=== PATIENT | female | born 1955 | race Caucasian/White ===

== ENCOUNTER 2017-05-06 14:10 | Outpatient (CLI) | payer BC ==
[2017-05-06 17:45] LABS: BASOPHILS % (AUTO) 0.3 %; EOSINOPHILS # (AUTO) 0.1 10^3/uL (0.0-0.7); EOSINOPHILS % (AUTO) 0.8 %; HCT - HEMATOCRIT 40.3 % (37.0-47.0); HGB - HEMOGLOBIN 13.9 g/dL (12.0-16.0); LYMPHOCYTES # (AUTO) 1.3 10^3/uL (1.5-3.5); LYMPHOCYTES % (AUTO) 18.8 %; MEAN CORPUSCULAR HEMOGLOBIN 34.2 pg (27.0-31.0); MEAN CORPUSCULAR HGB CONC 34.4 g/dL (32.0-36.0); MEAN CORPUSCULAR VOLUME 99.3 fL (81.0-99.0); MEAN PLATELET VOLUME 6.6 fL (7.9-10.8); MONOCYTES # (AUTO) 0.4 10^3/uL (0.0-1.0); MONOCYTES % (AUTO) 5.5 %; NEUTROPHILS % (AUTO) 74.6 %; RED BLOOD COUNT 4.06 10^6/uL (4.20-5.40); UNCORRECTED WHITE BLOOD COUNT 6.7 x10^3/uL; WHITE BLOOD COUNT 6.7 x10^3/uL (4.8-10.8)
[2017-05-06 17:59] LABS: ALBUMIN/GLOBULIN RATIO 1.7 (1.0-2.2); BILIRUBIN,TOTAL 0.4 mg/dL (0.2-1.0); CALCIUM 8.8 mg/dL (8.5-10.3); CREATININE 1.1 mg/dL (0.4-1.0); TOTAL PROTEIN 6.7 g/dL (6.7-8.2)
== END 2017-05-06 14:11 | disposition home or self-care (01) ==
LOC: LAB.F 14:10
PROVIDERS: ATTEND Physician Assistant Medical
DX: R53.83 Other fatigue (principal); J02.9 Acute pharyngitis, unspecified
CPT/HCPCS: 36415; 80053; 85025; 87070; 87430

== ENCOUNTER 2017-05-06 19:35 | Outpatient (CLI) | payer BC ==
[2017-05-06 18:51] LABS: RAPID STREP SCREEN REAGENT QC YELLOW (YELLOW)
== END 2017-05-06 19:36 | disposition home or self-care (01) ==
LOC: LAB.R 19:35
PROVIDERS: ATTEND Physician Assistant Medical
DX: R53.83 Other fatigue (principal); J02.9 Acute pharyngitis, unspecified
CPT/HCPCS: 87070; 87430

== ENCOUNTER 2017-12-31 12:31 | Outpatient (CLI) | payer BC ==
--- NOTE | 2017-12-31 13:33 | XRAY Report ---
THREE VIEW RIGHT WRIST: 12/31/2017 CLINICAL INDICATION: Pain. FINDINGS: AP, lateral, oblique views of the right wrist demonstrate mild osteoarthritis. There is no evidence of acute fracture or dislocation. No radiopaque foreign body is seen in the soft tissues. IMPRESSION: MILD OSTEOARTHRITIS. TD: 12/31/2017 13:32
== END 2017-12-31 12:32 | disposition home or self-care (01) ==
LOC: DI.S 12:31
PROVIDERS: ATTEND Nurse Practitioner Family
DX: M25.531 Pain in right wrist (principal); M19.031 Primary osteoarthritis, right wrist

== ENCOUNTER 2020-11-23 08:00 | Outpatient (CLI) | payer MEDICARE ==
--- OUTSIDE RECORDS SUMMARY | 2020-11-29 01:48 | EXTERNAL MEDICAL SUMMARY RPT | Continuity of Care Document ---
:1955 Demographics Phone Unavailable Preferred Language Unknown Marital Status Unknown Mandaeism Affiliation Unknown Race Unknown Ethnic Group Unknown Author Organization [facility] Address [address] [phone] Phone Care Team Providers Name Role Phone MA Unavailable Unavailable PA-C Unavailable Unavailable Itz Unavailable Unavailable Problems date description facility [id number] Alcohol use [facility] [id number] Abdominal pain, other specified site; [facility] [id number] Alcohol intake [facility] [place] [facility] [id number] Details of drug misuse behavior [facility] [id number] Left flank pain [facility] [place] [facility] [id number] Never smoker [facility] [id number] Tobacco smoking status [facility] [id number] Unspecified abdominal pain [facility] [id number] Abdominal pain, left lower quadrant [facility] [id number] Dysuria [facility] [place] [facility] [id number] Left lower quadrant pain [facility] [id number] Tobacco use and exposure [facility] [id number] Urine C&S [facility] Results test status date ordered by attending specimen zoe e DIPSTICK_URINE_STRIP_L unknown [id number] unknown unknown unknown OT_NUMBER protein_urine_semiquan unknown [id number] unknown unknown unknown titative_dipstick_ glucose_urine_semiquan unknown [id number] unknown unknown unknown titative Erythrocytes_area_in_U unknown [id number] unknown unknown unknown rine_sediment_by_Micros copy_high_power_field RBC_urine_dipstick unknown [id number] unknown unknown unkn own Albumin_Presence_in_Ur unknown [id number] unknown unknown unknown ine urine_color unknown [id number] unknown unknown unknown bilirubin_urine unknown [id number] unknown unknown unknown ketones_urine_by_test_ unknown [id number] unknown unknown unknown strip nitrite_urine_semiquan unknown [id number] unknown unknown unknown titative pH_urine_semiquantitat unknown [id number] unknown unknown unknown stone specific_gravity_urine unknown [id number] unknown unknown unknown urobilinogen_urine_sem unknown 28479031 unknown unknown unknown iquantitative_dipstick_ leukocyte_esterase_uri unknown [id number] unknown unknown unknown ne_by_dipstick appearance_urine unknown 07234553 unknown unknown unknow n blood_glucose_finger_s unknown 58840753 unknown unknown unknown tick urinalysis_routine unknown [id number] unknown unknown unkn own culture_status unknown [id number] unknown unknown unknown Appearance_of_Urine unknown 86530607 unknown unknown unk nown Bilirubin.total_Presen unknown [id number] unknown unknown unknown ce_in_Urine_by_Test_str ip Color_of_Urine unknown [id number] unknown unknown unknown Glucose_Mass_volume_in unknown 94875638 unknown unknown unknown _Urine_by_Test_strip Ketones_Mass_volume_in unknown [id number] unknown unknown unknown _Urine_by_Test_strip Leukocyte_esterase_Pre unknown 08799510 unknown unknown unknown sence_in_Urine_by_Test_ strip Nitrite_Presence_in_Ur unknown [id number] unknown unknown unknown ine_by_Test_strip pH_of_Urine_by_Test_st unknown 01655181 unknown unknown unknown rip Specific_gravity_of_Ur unknown 99064703 unknown unknown unknown ine_by_Test_strip Urobilinogen_Presence_ unknown [id number] unknown unknown unknown in_Urine_by_Test_strip blood_glucose_finger_s unknown 56687882 unknown unknown unknown tick DIPSTICK_URINE_STRIP_L unknown [id number] unknown unknown unknown OT_NUMBER protein_urine_semiquan unknown 28263477 unknown unknown unknown titative_dipstick_ glucose_urine_semiquan unknown 46904150 unknown unknown unknown titative Erythrocytes_area_in_U unknown 68968415 unknown unknown unknown rine_sediment_by_Micros copy_high_power_field RBC_urine_dipstick unknown 96414480 unknown unknown unkn own Albumin_Presence_in_Ur unknown 15229544 unknown unknown unknown ine urine_color unknown 73138176 unknown unknown unknown bilirubin_urine unknown 57595710 unknown unknown unknown ketones_urine_by_test_ unknown 19987995 unknown unknown unknown strip nitrite_urine_semiquan unknown 46284051 unknown unknown unknown titative pH_urine_semiquantitat unknown 60988406 unknown unknown unknown stone specific_gravity_urine unknown 81504758 unknown unknown unknown urobilinogen_urine_sem unknown [id number] unknown unknown unknown iquantitative_dipstick_ leukocyte_esterase_uri unknown 28318794 unknown unknown unknown ne_by_dipstick appearance_urine unknown 52894215 unknown unknown unknow n blood_glucose_finger_s unknown 59323318 unknown unknown unknown tick urinalysis_routine unknown 41698286 unknown unknown unkn own culture_status unknown 92726816 unknown unknown unknown Appearance_of_Urine unknown 13348302 unknown unknown unk nown Bilirubin.total_Presen unknown 73507300 unknown unknown unknown ce_in_Urine_by_Test_str ip Color_of_Urine unknown 46184267 unknown unknown unknown Glucose_Mass_volume_in unknown 95163570 unknown unknown unknown _Urine_by_Test_strip Ketones_Mass_volume_in unknown 50973380 unknown unknown unknown _Urine_by_Test_strip Leukocyte_esterase_Pre unknown 01396232 unknown unknown unknown sence_in_Urine_by_Test_ strip Nitrite_Presence_in_Ur unknown 79350001 unknown unknown unknown ine_by_Test_strip pH_of_Urine_by_Test_st unknown 74073473 unknown unknown unknown rip Specific_gravity_of_Ur unknown 28448371 unknown unknown unknown ine_by_Test_strip Urobilinogen_Presence_ unknown 08383402 unknown unknown unknown in_Urine_by_Test_strip blood_glucose_finger_s unknown 66424542 unknown unknown unknown tick DIPSTICK_URINE_STRIP_L unknown [id number] unknown unknown unknown OT_NUMBER protein_urine_semiquan unknown 70621949 unknown unknown unknown titative_dipstick_ glucose_urine_semiquan unknown 80953670 unknown unknown unknown titative Erythrocytes_area_in_U unknown 87490422 unknown unknown unknown rine_sediment_by_Micros copy_high_power_field RBC_urine_dipstick unknown 56714407 unknown unknown unkn own Albumin_Presence_in_Ur unknown 50978484 unknown unknown unknown ine urine_color unknown 12007406 unknown unknown unknown bilirubin_urine unknown 13946617 unknown unknown unknown ketones_urine_by_test_ unknown 29197589 unknown unknown unknown strip nitrite_urine_semiquan unknown 94713289 unknown unknown unknown titative pH_urine_semiquantitat unknown 98112865 unknown unknown unknown stone specific_gravity_urine unknown 90736312 unknown unknown unknown urobilinogen_urine_sem unknown 34922643 unknown unknown unknown iquantitative_dipstick_ leukocyte_esterase_uri unknown 81040813 unknown unknown unknown ne_by_dipstick appearance_urine unknown 67526179 unknown unknown unknow n blood_glucose_finger_s unknown 42544021 unknown unknown unknown tick urinalysis_routine unknown 92206959 unknown unknown unkn own culture_status unknown 70512617 unknown unknown unknown Appearance_of_Urine unknown 93101148 unknown unknown unk nown Bilirubin.total_Presen unknown 98948896 unknown unknown unknown ce_in_Urine_by_Test_str ip Color_of_Urine unknown 49713775 unknown unknown unknown Glucose_Mass_volume_in unknown 77355152 unknown unknown unknown _Urine_by_Test_strip Ketones_Mass_volume_in unknown 32525428 unknown unknown unknown _Urine_by_Test_strip Leukocyte_esterase_Pre unknown 28488501 unknown unknown unknown sence_in_Urine_by_Test_ strip Nitrite_Presence_in_Ur unknown 33633770 unknown unknown unknown ine_by_Test_strip pH_of_Urine_by_Test_st unknown 63608416 unknown unknown unknown rip Specific_gravity_of_Ur unknown 82347693 unknown unknown unknown ine_by_Test_strip Urobilinogen_Presence_ unknown 52409759 unknown unknown unknown in_Urine_by_Test_strip blood_glucose_finger_s unknown 70071053 unknown unknown unknown tick facility observation status [...] e_by_test_str Primary ip [facility] nitrite_urin unknown negative unknown _323 unkn [...] 142.2 lb Social History date description facility [id number]
== END 2020-11-23 23:59 | disposition home or self-care (01) ==
LOC: LAB.R 08:00
PROVIDERS: ATTEND Physician Assistant
DX: R10.9 Unspecified abdominal pain (principal); R30.0 Dysuria
CPT/HCPCS: 87086

== ENCOUNTER 2020-11-23 13:53 | Emergency (ER) | payer BC, MEDICARE ==
[2020-11-23] MEDS ORDERED: KETOROLAC 30 MG/ML VIAL IVP STA (14:14)
[2020-11-23] MEDS ORDERED: MORPHINE 2 MG/ML CARPUJECT IVP STA (14:15)
[2020-11-23] MEDS ORDERED: ONDANSETRON 4 MG/2 ML VIAL IVP STA (14:15)
[2020-11-23] MEDS ORDERED: SODIUM CHLORIDE 0.9% 1,000 ML IV STA (14:15)
[2020-11-23 14:18] LABS: BILIRUBIN,URINE NEGATIVE (NEGATIVE); GLUCOSE, URINE (UA) NEGATIVE (NEGATIVE); KETONES,URINE (UA) TRACE mg/dL (NEGATIVE); LEUKOCYTE ESTERASE, URINE NEGATIVE (NEGATIVE); NITRITE,URINE NEGATIVE (NEGATIVE); OCCULT BLOOD,URINE TRACE-INTA (NEGATIVE); PROTEIN,URINE NEGATIVE (NEGATIVE); UROBILINOGEN,URINE 0.2 (NORMAL) E.U./dL (NORMAL)
--- NOTE | 2020-11-23 14:18 | ED Physician Documentation ---
History of Present Illness - Stated complaint Stated Complaint: LT FLANK PX - Chief complaint Chief Complaint: Abd Pain - History obtained from History obtained from: Patient - History of Present Illness Timing: Today Pain level max: 9 Pain level now: 9 - Additonal information Additional information: 65-year-old female presents to the emergency department stating she has urinary discomfort for the past several weeks, intermittently. This morning awoke with sharp left flank pain. Occasionally has chills. Has nausea but no vomiting nothing makes it better or worse. Was seen at the walk-in clinic this morning and sent here for evaluation. Still has dysuria, no hematuria Review of Systems Ten Systems: 10 systems reviewed and negative Constitutional: reports: Chills. denies: Fever Ears: denies: Ear pain Nose: denies: Rhinorrhea / runny nose, Congestion Respiratory: denies: Cough GI: reports: Nausea, Diarrhea (crhonic, unchanged). denies: Vomiting : reports: Dysuria, Frequency, Hesitancy Skin: denies: Rash Musculoskeletal: reports: Back pain (L flank). denies: Neck pain Neurologic: denies: Headache PD PAST MEDICAL HISTORY - Past Medical History Respiratory: Asthma RETAIL BUSINESS DEVELOPMENT MANAGER: Endometriosis, Ovarian cysts - Past Surgical History Past Surgical History: Yes General: Other /RE[employer]ELOPMENT MANAGER: Other (surgery related to endometriosis) - Present Medications Home Medications: Ambulatory Orders Medication Instructions Recorded Confirmed Ibuprofen [Motrin] 800 mg PO Q8H PRN #30 tablet 11/23/20 Ondansetron Odt [Zofran] 4 mg TL Q6H PRN #10 tablet 11/23/20 Oxycodone HCl/Acetaminophen 1 - 2 each PO Q6H PRN #14 tablet 11/23/20 [Percocet 5-325 mg Tablet] - Allergies Allergies/Adverse Reactions: Allergies Allergy/AdvReac Type Severity Reaction Status Date / Time azithromycin AdvReac Nausea Verified 11/23/20 13:58 - Social History Does the pt smoke?: No Smoking Status: Never smoker Does the pt drink ETOH?: Yes Does the pt have substance abuse?: No - Immunizations Immunizations are current?: Yes PD ED PE NORMAL - Vitals Vital signs reviewed: Yes - General General: Alert and oriented X 3, No acute distress - HEENT HEENT: Moist mucous membranes - Neck Neck: Supple, no meningeal sign - Cardiac Cardiac: RRR, Strong equal pulses - Respiratory Respiratory: No respiratory distress, Clear bilaterally - Abdomen Abdomen: Soft, Non tender, Non distended - Back Back: No spinal TTP, Other (L CVAT) - Derm Derm: Warm and dry - Extremities Extremities: No edema, No calf tenderness / cord - Neuro Neuro: Alert and oriented X 3 - Psych Psych: Normal mood, Normal affect Results - Vitals Vitals: Vital Signs - 24 hr 11/23/20 11/23/20 13:58 16:11 Temperature 36.5 C Heart Rate 90 82 Respiratory 16 16 Rate Blood Pressure 115/94 H 111/97 H O2 Saturation 99 Oxygen O2 Source Room air - Labs Labs: Laboratory Tests 11/23/20 11/23/20 11/23/20 14:08 15:13 15:13 WBC 7.8 RBC 4.21 Hgb 14.3 Hct 40.3 MCV 95.7 MCH 34.0 H MCHC 35.5 RDW 13.2 Plt Count 319 MPV 8.1 Neut # (Auto) 6.3 Lymph # (Auto) 0.9 L [place] # (Auto) 0.4 Eos # (Auto) 0.1 Baso # (Auto) 0.0 Absolute Nucleated RBC 0.00 Nucleated RBC % 0.0 Sodium 140 Potassium 3.7 Chloride 100 L Carbon Dioxide 25 Anion Gap 15.0 H BUN 15 Creatinine 0.9 Estimated GFR (MDRD) 63 L Glucose 107 H Calcium 9.1 Total Bilirubin 0.9 AST 20 ALT 17 Alkaline Phosphatase 67 Total Protein 7.5 Albumin 4.2 Globulin 3.3 Albumin/Globulin Ratio 1.3 Lipase 23 Urine Color YELLOW Urine Clarity CLEAR Urine pH 6.0 Ur Specific [place] <=1.005 Urine Protein NEGATIVE Urine Glucose (UA) NEGATIVE Urine Ketones TRACE Urine Occult Blood TRACE-INTA Urine Nitrite NEGATIVE Urine Bilirubin NEGATIVE Urine Urobilinogen 0.2 (NORMAL) Ur Leukocyte Esterase NEGATIVE Ur Microscopic Review NOT INDICATED Urine Culture Comments NOT INDICATED Urine HCG, Qual NEGATIVE - Rads (name of study) CT abd/pelvis Radiology: Prelim report reviewed, EMP read contemporaneously, See rad report (4.5 mm left UVJ stone with mild hydronephrosis) PD MEDICAL DECISION MAKING - ED course Complexity details: reviewed results, re-evaluated patient, considered differential, d/w patient ED course: Pain well controlled in the emergency department. Appears to have a 4.5 mm left UVJ stone. Afebrile. No UTI. No vomiting. Feels much better. We will continue supportive care and have her follow-up with her doctor for further care. Patient counseled regarding signs and symptoms for which I believe and urgent re-evaluation would be necessary. Patient with good understanding of and agreement to plan and is comfortable going home at this time This document was made in part using voice recognition software. While efforts are made to proofread this document, sound alike and grammatical errors may occur. Departure - Departure Disposition: 01 Home, Self Care Clinical Impression: Ureteral calculus, left Condition: Good Instructions: ED Stone Renal W Colic Follow-Up: SOHAN RAINEY MD [Primary Care Provider] - Within 1 week Prescriptions: Ibuprofen [Motrin] 800 mg PO Q8H PRN #30 tablet PRN Reason: PAIN &/OR FEVER Oxycodone HCl/Acetaminophen [Percocet 5-325 mg Tablet] 1 - 2 each PO Q6H PRN #14 tablet PRN Reason: pain Ondansetron Odt [Zofran] 4 mg TL Q6H PRN #10 tablet PRN Reason: Nausea / Vomiting Comments: Drink plenty of fluids. Return if you worsen. You have a 4.5 mm left sided ureteral stone, this should pass on its own. Return especially for fevers, vomiting or uncontrolled pain. The Motrin will help to stop the spasming of the ureter, the Percocet should help with any breakthrough pain. Do not drink alcohol or drive while on narcotic pain medicine. Note that many narcotic pain relievers also contain tylenol/acetaminophen. Please ensure that your total dose of acetaminophen from all sources does not exceed 3 grams (3000mg) per day. You may constipated on this medication, take a stool softener such as "Colace" twice a day while you are on it. Also recommend a [id number] laxative such as senna or MiraLAX any day that you do not have a bowel movement. If you received narcotic pain medication in the emergency department, do not drive or operate machinery for the next 24 hours. 1. Minimal left-sided hydroureteronephrosis with likely 4.5 mm distal left ureteral stone visualized at the left ureterovesicular junction. Multiple adjacent pelvic phleboliths are seen in the vicinity. 2. Otherwise, no acute abnormalities identified in the abdomen or pelvis. 3. Multilevel lower lumbar spondylosis. Discharge Date/Time: 11/23/20 16:10
[2020-11-23 14:19] LABS: CLARITY,URINE CLEAR (CLEAR); HCG UR QUAL NEGATIVE
--- NOTE | 2020-11-23 14:50 | CT Report ---
PROCEDURE: Abdomen/Pelvis WO INDICATIONS: L flank pain, possible renal stone? TECHNIQUE: Noncontrast 5 mm thick sections acquired from the diaphragms to the symphysis. 5 mm coronal and sagi ttal reformats were then performed. For radiation dose reduction, the following was used: automated exposure control, adjustment of mA and/or kV according to patient size. COMPARISON: None. FINDINGS: Image quality: Excellent. ABDOMEN: Lung bases: Lung bases are clear. Heart size is normal. Solid organs: Liver and spleen are normal in size. Gallbladder is unremarkable. Pancreas is normal in contours. No adrenal nodules. Right kidney is normal in size, without hydronephrosis or nephroli thiasis. There is minimal left-sided hydroureteronephrosis with likely 4.5 mm distal left ureteral s tone visualized at the left ureterovesicular junction (axial image 70, series 3). No urinary bladder stones seen. No perinephric or periureteral stranding. Peritoneum and bowel: Unenhanced bowel loops demonstrate normal wall thickness and caliber. No free fluid or air. Nodes and vessels: No retroperitoneal or mesenteric adenopathy by size criteria. Aorta and inferior vena cava are normal in caliber. Minimal scattered atherosclerotic calcifications of the dominant a melania. Miscellaneous: No ventral hernias. PELVIS: Genitourinary: Bladder wall thickness is normal. Miscellaneous: No inguinal hernias or adenopathy. Bones: No suspicious bony lesions. No acute vertebral body compression fractures. Multilevel lumba r spondylosis most severe at L4-5 and L5-S1. IMPRESSION: 1. Minimal left-sided hydroureteronephrosis with likely 4.5 mm distal left ureteral stone visualized at the left ureterovesicular junction. Multiple adjacent pelvic phleboliths are seen in the vicinity. 2. Otherwise, no acute abnormalities identified in the abdomen or pelvis. 3. Multilevel lower lumbar spondylosis. Reviewed by: Skinny Allen MD on 11/23/2020 2:48 PM PDT Approved by: Skinny Allen MD on 11/23/2020 2:48 PM PDT Station ID: [id number]
[2020-11-23 15:37] LABS: BASOPHILS % (AUTO) 0.3 %; EOSINOPHILS # (AUTO) 0.1 10^3/uL (0.0-0.7); EOSINOPHILS % (AUTO) 0.6 %; HCT - HEMATOCRIT 40.3 % (37.0-47.0); HGB - HEMOGLOBIN 14.3 g/dL (12.0-16.0); LYMPHOCYTES # (AUTO) 0.9 10^3/uL (1.5-3.5); LYMPHOCYTES % (AUTO) 11.7 %; MEAN CORPUSCULAR HGB CONC 35.5 g/dL (32.0-36.0); MEAN CORPUSCULAR VOLUME 95.7 fL (81.0-99.0); MEAN PLATELET VOLUME 8.1 fL (7.9-10.8); MONOCYTES # (AUTO) 0.4 10^3/uL (0.0-1.0); MONOCYTES % (AUTO) 5.4 %; NEUTROPHILS # (AUTO) 6.3 10^3/uL (1.5-6.6); NEUTROPHILS % (AUTO) 81.6 %; PLT - PLATELET COUNT 319 10^3/uL (130-450); RED BLOOD COUNT 4.21 10^6/uL (4.20-5.40); RED CELL DISTRIBUTION WIDTH 13.2 % (12.0-15.0); WHITE BLOOD COUNT 7.8 x10^3/uL (4.8-10.8)
[2020-11-23 15:49] LABS: ALBUMIN 4.2 g/dL (3.2-5.5); ALBUMIN/GLOBULIN RATIO 1.3 (1.0-2.2); BILIRUBIN,TOTAL 0.9 mg/dL (0.2-1.0); CALCIUM 9.1 mg/dL (8.5-10.3); CREATININE 0.9 mg/dL (0.4-1.0); POTASSIUM 3.7 mmol/L (3.5-5.0); TOTAL PROTEIN 7.5 g/dL (6.7-8.2)
[2020-11-23 16:12] VITALS: BP 111/97
--- OUTSIDE RECORDS SUMMARY | 2020-11-29 01:10 | EXTERNAL MEDICAL SUMMARY RPT | Continuity of Care Document ---
:1955 Demographics Phone Unavailable Preferred Language Unknown Marital Status Unknown Roman Catholic Affiliation Unknown Race Unknown Ethnic Group Unknown Author Organization [place] Address [address] [phone] Phone Care Team Providers Name Role Phone MA Unavailable Unavailable Itz Unavailable Unavailable PA-C Unavailable Unavailable Problems date description facility [id number] Alcohol use [facility] [place] [id number] Abdominal pain, other specified site; [facility] & multiple sites [facility] [place] [id number] Alcohol intake [facility] [place] [facility] [place] [id number] Details of drug misuse behavior [facility] [id number] Left flank pain [facility] [place] [facility] [id number] [facility] sm[facility] [id number] Tobacco smoking status NHIS [facility] Primary [facility] [id number] Unspecified abdominal pain [facility] [place] [id number] Abdominal pain, left lower quadrant [facility] [id number] Dysuria [facility] [place] [facility] [id number] Left lower quadrant pain [facility] [id number] Tobacco use and exposure [facility] [id number] Urine C&S [facility] Prim ward [facility] Results test status date ordered by attending specimen zoe e DIPSTICK_URINE_STRIP_L unknown [id number] unknown unknown unknown OT_NUMBER protein_urine_semiquan unknown 14604099 unknown unknown unknown titative_dipstick_ glucose_urine_semiquan unknown [id number] unknown unknown unknown titative Erythrocytes_area_in_U unknown 59260310 unknown unknown unknown rine_sediment_by_Micros copy_high_power_field RBC_urine_dipstick unknown [id number] unknown unknown unkn own Albumin_Presence_in_Ur unknown 97027304 unknown unknown unknown ine urine_color unknown 85192327 unknown unknown unknown bilirubin_urine unknown 73265704 unknown unknown unknown ketones_urine_by_test_ unknown 58539056 unknown unknown unknown strip nitrite_urine_semiquan unknown 57253253 unknown unknown unknown titative pH_urine_semiquantitat unknown 23605249 unknown unknown unknown stone specific_gravity_urine unknown 58048585 unknown unknown unknown urobilinogen_urine_sem unknown 17356230 unknown unknown unknown iquantitative_dipstick_ leukocyte_esterase_uri unknown 01740492 unknown unknown unknown ne_by_dipstick appearance_urine unknown 87997104 unknown unknown unknow n blood_glucose_finger_s unknown 70421390 unknown unknown unknown tick urinalysis_routine unknown 07813210 unknown unknown unkn own culture_status unknown 73581686 unknown unknown unknown Appearance_of_Urine unknown 03379576 unknown unknown unk nown Bilirubin.total_Presen unknown 65068445 unknown unknown unknown ce_in_Urine_by_Test_str ip Color_of_Urine unknown 04649024 unknown unknown unknown Glucose_Mass_volume_in unknown 58564905 unknown unknown unknown _Urine_by_Test_strip Ketones_Mass_volume_in unknown 25790500 unknown unknown unknown _Urine_by_Test_strip Leukocyte_esterase_Pre unknown 21010533 unknown unknown unknown sence_in_Urine_by_Test_ strip Nitrite_Presence_in_Ur unknown 29385610 unknown unknown unknown ine_by_Test_strip pH_of_Urine_by_Test_st unknown 62152042 unknown unknown unknown rip Specific_gravity_of_Ur unknown 76025848 unknown unknown unknown ine_by_Test_strip Urobilinogen_Presence_ unknown 72815019 unknown unknown unknown in_Urine_by_Test_strip blood_glucose_finger_s unknown 25145941 unknown unknown unknown tick DIPSTICK_URINE_STRIP_L unknown 79811791 unknown unknown unknown OT_NUMBER protein_urine_semiquan unknown 51270135 unknown unknown unknown titative_dipstick_ glucose_urine_semiquan unknown 80409994 unknown unknown unknown titative Erythrocytes_area_in_U unknown 69239880 unknown unknown unknown rine_sediment_by_Micros copy_high_power_field RBC_urine_dipstick unknown 67045320 unknown unknown unkn own Albumin_Presence_in_Ur unknown 51129326 unknown unknown unknown ine urine_color unknown 00556461 unknown unknown unknown bilirubin_urine unknown 26533624 unknown unknown unknown ketones_urine_by_test_ unknown 82435822 unknown unknown unknown strip nitrite_urine_semiquan unknown 60006541 unknown unknown unknown titative pH_urine_semiquantitat unknown 11911596 unknown unknown unknown stone specific_gravity_urine unknown 68064564 unknown unknown unknown urobilinogen_urine_sem unknown 53950600 unknown unknown unknown iquantitative_dipstick_ leukocyte_esterase_uri unknown 24937802 unknown unknown unknown ne_by_dipstick appearance_urine unknown 92613009 unknown unknown unknow n blood_glucose_finger_s unknown 35511884 unknown unknown unknown tick urinalysis_routine unknown 68701420 unknown unknown unkn own culture_status unknown 74620160 unknown unknown unknown Appearance_of_Urine unknown 42642040 unknown unknown unk nown Bilirubin.total_Presen unknown 47489119 unknown unknown unknown ce_in_Urine_by_Test_str ip Color_of_Urine unknown 88286821 unknown unknown unknown Glucose_Mass_volume_in unknown 03119556 unknown unknown unknown _Urine_by_Test_strip Ketones_Mass_volume_in unknown 83142917 unknown unknown unknown _Urine_by_Test_strip Leukocyte_esterase_Pre unknown 31819068 unknown unknown unknown sence_in_Urine_by_Test_ strip Nitrite_Presence_in_Ur unknown 22888891 unknown unknown unknown ine_by_Test_strip pH_of_Urine_by_Test_st unknown 39034947 unknown unknown unknown rip Specific_gravity_of_Ur unknown 40967167 unknown unknown unknown ine_by_Test_strip Urobilinogen_Presence_ unknown 19056553 unknown unknown unknown in_Urine_by_Test_strip blood_glucose_finger_s unknown 86813333 unknown unknown unknown tick DIPSTICK_URINE_STRIP_L unknown 76341354 unknown unknown unknown OT_NUMBER protein_urine_semiquan unknown 70227882 unknown unknown unknown titative_dipstick_ glucose_urine_semiquan unknown 68544688 unknown unknown unknown titative Erythrocytes_area_in_U unknown 43515258 unknown unknown unknown rine_sediment_by_Micros copy_high_power_field RBC_urine_dipstick unknown 74532994 unknown unknown unkn own Albumin_Presence_in_Ur unknown 10692475 unknown unknown unknown ine urine_color unknown 22243787 unknown unknown unknown bilirubin_urine unknown 43431605 unknown unknown unknown ketones_urine_by_test_ unknown 28061058 unknown unknown unknown strip nitrite_urine_semiquan unknown 57928584 unknown unknown unknown titative pH_urine_semiquantitat unknown 07369608 unknown unknown unknown stone specific_gravity_urine unknown 28805538 unknown unknown unknown urobilinogen_urine_sem unknown 31246518 unknown unknown unknown iquantitative_dipstick_ leukocyte_esterase_uri unknown 63363788 unknown unknown unknown ne_by_dipstick appearance_urine unknown 35188249 unknown unknown unknow n blood_glucose_finger_s unknown 29272871 unknown unknown unknown tick urinalysis_routine unknown 25979264 unknown unknown unkn own culture_status unknown 97292101 unknown unknown unknown Appearance_of_Urine unknown 53917671 unknown unknown unk nown Bilirubin.total_Presen unknown 40126535 unknown unknown unknown ce_in_Urine_by_Test_str ip Color_of_Urine unknown 05553943 unknown unknown unknown Glucose_Mass_volume_in unknown 91736654 unknown unknown unknown _Urine_by_Test_strip Ketones_Mass_volume_in unknown 31308804 unknown unknown unknown _Urine_by_Test_strip Leukocyte_esterase_Pre unknown 52321653 unknown unknown unknown sence_in_Urine_by_Test_ strip Nitrite_Presence_in_Ur unknown 83281221 unknown unknown unknown ine_by_Test_strip pH_of_Urine_by_Test_st unknown 64875394 unknown unknown unknown rip Specific_gravity_of_Ur unknown 58958471 unknown unknown unknown ine_by_Test_strip Urobilinogen_Presence_ unknown 87066049 unknown unknown unknown in_Urine_by_Test_strip blood_glucose_finger_s unknown 91263343 unknown unknown unknown tick facility observation status value reference units lab abnor mal line range code notes Walk-In DIPSTICK_URI unknown 5067 unknown _1014 unknow n unknown Clinic NE_STRIP_LOT_ 00 Primary NUMBER Care [facility] [place] [facility] protein_urin unknown trace unknown _118 unknow n unknown Clinic e_semiquantit Primary ative_dipstic Care & k_ [facility] [place] [facility] glucose_urin unknown negative unknown _123 unkn own unknown Clinic e_semiquantit Primary ative Care & [facility] [place] [facility] Erythrocytes unknown 1+ unknown _1394 unknow n unknown Clinic _area_in_Urin 5-1 Primary e_sediment_by Care & _Microscopy_h Ancillary igh_power_fie Services ld [place] RBC_urine_di unknown 1+ unknown _1700 unknow n unknown Clinic pstick 005 Primary [facility] [place] [facility] Albumin_Pres unknown trace unknown _1753 unknow n unknown Clinic ence_in_Urine -3 Primary [facility] [place] [facility] urine_color unknown yellow unknown _2751 unknown unknown Clinic Primary [facility] [place] bilirubin_ur unknown 1+ unknown _319 unknow n unknown Clinic ine [facility] [place] ketones_urin unknown trace (5) unknown _322 unk nown unknown Clinic e_by_test_str Primary ip [facility] [place] [facility] nitrite_urin unknown negative unknown _323 unkn own unknown Clinic e_semiquantit Primary ative Care & [facility] [place] [facility] pH_urine_sem unknown 5 unknown _324 unknow n unknown Clinic iquantitative Primary [facility] [place] specific_gra unknown 1.020 unknown _325 unknow n unknown Clinic vity_urine [facility] [place] [facility] urobilinogen unknown negative unknown _326 unkn own unknown Clinic _urine_semiqu Primary antitative_di Care & pstick_ [facility] [place] [facility] leukocyte_es unknown trace unknown _327 unknow n unknown Clinic terase_urine_ Primary by_dipstick Care & [facility] [place] [facility] appearance_u unknown clear unknown _328 unknow n unknown Clinic rine Primary [facility] [place] blood_glucos unknown 102 unknown _3889 unknow n unknown Clinic e_finger_stic Primary k Care & [facility] [place] [facility] urinalysis_r unknown Clean unknown _47 unknow n unknown Clinic outine Catch Primary [facility] [place] [facility] culture_stat unknown Yes unknown _5101 unknow n unknown Clinic us 5 Primary [facility] [place] [facility] Appearance_o unknown clear unknown _5767 unknow n unknown Clinic f_Urine -9 Primary [facility] [place] [facility] Bilirubin.to unknown 1+ unknown _5770 unknow n unknown Clinic tal_Presence_ -3 Primary in_Urine_by_T Care & est_strip [facility]illary [facility] [place] [facility] Color_of_Uri unknown yellow unknown _5778 unknow n unknown Clinic ne -6 Primary [facility] [place] [facility] Glucose_Mass unknown negative unknown _5792 unkn own unknown Clinic _volume_in_Ur -7 Primary ine_by_Test_s Care & trip [facility]illary [facility] [place] [facility] Ketones_Mass unknown trace (5) unknown _5797 unk nown unknown Clinic _volume_in_Ur -6 Primary ine_by_Test_s Care & trip [facility] [place] [facility] Leukocyte_es unknown trace unknown _5799 unknow n unknown Clinic terase_Presen -2 Primary ce_in_Urine_b Care & y_Test_strip Ancillary [facility] [place] [facility] Nitrite_Pres unknown negative unknown _5802 unkn own unknown Clinic ence_in_Urine -4 Primary _by_Test_stri Care & p [facility] [place] pH_of_Urine_ unknown 5 unknown _5803 unknow n unknown Clinic by_Test_strip -2 Primary [facility] [place] [facility] Specific_gra unknown 1.020 unknown _5811 unknow n unknown Clinic vity_of_Urine -5 Primary _by_Test_stri Care & p [facility] [place] [facility] Urobilinogen unknown negative unknown _5818 unkn own unknown Clinic _Presence_in_ -0 Primary Urine_by_Test Care & _strip [facility]illary [facility] [place] blood_glucos unknown 102 unknown _5914 unknow n unknown Clinic e_finger_stic -7 Primary k Care & [facility] [place] DIPSTICK_URI unknown 5067 unknown _1014 unknow n unknown Clinic NE_STRIP_LOT_ 00 Primary NUMBER Care & [facility] [place] protein_urin unknown trace unknown _118 unknow n unknown Clinic e_semiquantit Primary ative_dipstic Care & k_ [facility] [place] glucose_urin unknown negative unknown _123 unkn own unknown Clinic e_semiquantit Primary ative Care & [facility] [place] Erythrocytes unknown 1+ unknown _1394 unknow n unknown Clinic _area_in_Urin 5-1 Primary e_sediment_by Care & _Microscopy_h Ancillary igh_power_fie Services ld [facility] RBC_urine_di unknown 1+ unknown _1700 unknow n unknown Clinic pstick 005 Primary [facility] [place] Albumin_Pres unknown trace unknown _1753 unknow n unknown Clinic ence_in_Urine -3 Primary [facility] [place] [facility] urine_color unknown yellow unknown _2751 unknown unknown Clinic Primary [facility] [place] bilirubin_ur unknown 1+ unknown _319 unknow n unknown Clinic ine [facility] [place] [facility] ketones_urin unknown trace (5) unknown _322 unk nown unknown Clinic e_by_test_str Primary ip Care & [facility] [place] nitrite_urin unknown negative unknown _323 unkn own unknown Clinic e_semiquantit Primary ative Care & [facility]illary [facility] [place] pH_urine_sem unknown 5 unknown _324 unknow n unknown Clinic iquantitative Primary [facility] & [facility] [place] specific_gra unknown 1.020 unknown _325 unknow n unknown Clinic vity_urine Primary [facility] [place] [facility] urobilinogen unknown negative unknown _326 unkn own unknown Clinic _urine_semiqu Primary antitative_di Care & pstick_ Ancillary Services [place] [facility] leukocyte_es unknown trace unknown _327 unknow n unknown Clinic terase_urine_ Primary by_dipstick Care & Ancillary [facility] [place] [facility] appearance_u unknown clear unknown _328 unknow n unknown Clinic rine Primary Care [facility] [place] [facility] blood_glucos unknown 102 unknown _3889 unknow n unknown Clinic e_finger_stic Primary k Care & [facility] [place] [facility] urinalysis_r unknown Clean unknown _47 unknow n unknown Clinic outine Catch Primary [facility] [place] [facility] culture_stat unknown Yes unknown _5101 unknow n unknown Clinic us 5 Primary [facility] [place] [facility] Appearance_o unknown clear unknown _5767 unknow n unknown Clinic f_Urine -9 Primary [facility] [place] [facility] Bilirubin.to unknown 1+ unknown _5770 unknow n unknown Clinic tal_Presence_ -3 Primary in_Urine_by_T Care & est_strip [facility]illary [facility] [place] [facility] Color_of_Uri unknown yellow unknown _5778 unknow n unknown Clinic ne -6 Primary [facility] [place] [facility] Glucose_Mass unknown negative unknown _5792 unkn own unknown Clinic _volume_in_Ur -7 Primary ine_by_Test_s Care & trip [facility] [place] [facility] Ketones_Mass unknown trace (5) unknown _5797 unk nown unknown Clinic _volume_in_Ur -6 Primary ine_by_Test_s Care & trip [facility] [place] [facility] Leukocyte_es unknown trace unknown _5799 unknow n unknown Clinic terase_Presen -2 Primary ce_in_Urine_b Care & y_Test_strip [facility]illary [facility] [place] Nitrite_Pres unknown negative unknown _5802 unkn own unknown Clinic ence_in_Urine -4 Primary _by_Test_stri Care & p [facility] [place] pH_of_Urine_ unknown 5 unknown _5803 unknow n unknown Clinic by_Test_strip -2 Primary [facility] [place] [facility] Specific_gra unknown 1.020 unknown _5811 unknow n unknown Clinic vity_of_Urine -5 Primary _by_Test_stri Care & p [facility]illary [facility] [place] Urobilinogen unknown negative unknown _5818 unkn own unknown Clinic _Presence_in_ -0 Primary Urine_by_Test Care & _strip Ancillary [facility] [place] [facility] blood_glucos unknown 102 unknown _5914 unknow n unknown Clinic e_finger_stic -7 Primary k Care & [facility] [place] DIPSTICK_URI unknown 5067 unknown _1014 unknow n unknown Clinic NE_STRIP_LOT_ 00 Primary NUMBER Care & Anc[facility] [place] protein_urin unknown trace unknown _118 unknow n unknown Clinic e_semiquantit Primary ative_dipstic Care & k_ Ancillary Services [place] glucose_urin unknown negative unknown _123 unkn own unknown Clinic e_semiquantit Primary ative Care & [facility] [place] Erythrocytes unknown 1+ unknown _1394 unknow n unknown Clinic _area_in_Urin 5-1 Primary e_sediment_by Care & _Microscopy_h Ancillary igh_power_fie Services ld [place] RBC_urine_di unknown 1+ unknown _1700 unknow n unknown Clinic pstick 005 Primary [facility] [place] [facility] Albumin_Pres unknown trace unknown _1753 unknow n unknown Clinic ence_in_Urine -3 Primary [facility] urine_color unknown yellow unknown _2751 unknown unknown Clinic Primary [facility] [place] bilirubin_ur unknown 1+ unknown _319 unknow n unknown Clinic ine [facility] [place] [facility] ketones_urin unknown trace (5) unknown _322 unk nown unknown Clinic e_by_test_str Primary ip Care & [facility] [place] nitrite_urin unknown negative unknown _323 unkn own unknown Clinic e_semiquantit Primary ative Care & [facility] [place] pH_urine_sem unknown 5 unknown _324 unknow n unknown Clinic iquantitative [facility] [place] specific_gra unknown 1.020 unknown _325 unknow n unknown Clinic vity_urine [facility] [place] urobilinogen unknown negative unknown _326 unkn own unknown Clinic _urine_semiqu Primary antitative_di Care & pstick_ [facility]illary [facility] leukocyte_es unknown trace unknown _327 unknow n unknown Clinic terase_urine_ Primary by_dipstick Care & [facility] [place] appearance_u unknown clear unknown _328 unknow n unknown Clinic rine [facility] [place] blood_glucos unknown 102 unknown _3889 unknow n unknown Clinic e_finger_stic Primary k Care & [facility] [place] urinalysis_r unknown Clean unknown _47 unknow n unknown Clinic outine Catch [facility] [place] culture_stat unknown Yes unknown _5101 unknow n unknown Clinic us 5 Primary [facility] [place] Appearance_o unknown clear unknown _5767 unknow n unknown Clinic f_Urine -9 Primary [facility] [place] Bilirubin.to unknown 1+ unknown _5770 unknow n unknown Clinic tal_Presence_ -3 Primary in_Urine_by_T Care & est_strip [facility] [place] Color_of_Uri unknown yellow unknown _5778 unknow n unknown Clinic ne -6 Primary [facility] [place] Glucose_Mass unknown negative unknown _5792 unkn own unknown Clinic _volume_in_Ur -7 Primary ine_by_Test_s Care & trip [facility] [place] Ketones_Mass unknown trace (5) unknown _5797 unk nown unknown Clinic _volume_in_Ur -6 Primary ine_by_Test_s Care & trip [facility] Leukocyte_es unknown trace unknown _5799 unknow n unknown Clinic terase_Presen -2 Primary ce_in_Urine_b Care & y_Test_strip Ancillary Services [place] Nitrite_Pres unknown negative unknown _5802 unkn own unknown Clinic ence_in_Urine -4 Primary _by_Test_stri Care & p [facility] pH_of_Urine_ unknown 5 unknown _5803 unknow n unknown Clinic by_Test_strip -2 Primary [facility] [place] Specific_gra unknown 1.020 unknown _5811 unknow n unknown Clinic vity_of_Urine -5 Primary _by_Test_stri Care & p [facility]illary [facility] [place] Urobilinogen unknown negative unknown _5818 unkn own unknown Clinic _Presence_in_ -0 Primary Urine_by_Test Care & _strip [facility]illary [facility] [place] blood_glucos unknown 102 unknown _5914 unknow n unknown Clinic e_finger_stic -7 Primary k Care & [facility] [place] Vital Signs date measurement value source 20201123 BMI 21.38 kg/m2 20201123 BP_diastolic 74 mm[Hg] 20201123 BP_systolic 124 mm[Hg] 20201123 heart_rate 89 /min 20201123 height_metric 173.99 cm 20201123 height_standard 68.5 in 20201123 respiration_rate 18 /min 20201123 temperature_metric 36.5 C 20201123 temperature_standard 97.7 F 20201123 weight_metric 64.5 kg 20201123 weight_standard 142.2 lb 20201123 BMI 21.38 kg/m2 20201123 BP_diastolic 74 mm[Hg] 20201123 BP_systolic 124 mm[Hg] 20201123 heart_rate 89 /min 20201123 height_metric 173.99 cm 20201123 height_standard 68.5 in 20201123 respiration_rate 18 /min 20201123 temperature_metric 36.5 C 20201123 temperature_standard 97.7 F 20201123 weight_metric 64.5 kg 20201123 weight_standard 142.2 lb 20201123 BMI 21.38 kg/m2 20201123 BP_diastolic 74 mm[Hg] 20201123 BP_systolic 124 mm[Hg] 20201123 heart_rate 89 /min 20201123 height_metric 173.99 cm 20201123 height_standard 68.5 in 20201123 respiration_rate 18 /min 20201123 temperature_metric 36.5 C 20201123 temperature_standard 97.7 F 20201123 weight_metric 64.5 kg 20201123 weight_standard 142.2 lb Social History date description facility [id number]
== END 2020-11-23 16:10 | disposition home or self-care (01) ==
LOC: ED 13:53
DX: N13.2 Hydronephrosis with renal and ureteral calculous obstruction (principal); M47.816 Spondylosis without myelopathy or radiculopathy, lumbar region
CPT/HCPCS: 36415; 80053; 81001; 81003; 81025; 83690; 85025; 87086; 96361; 96374; 96375; 99284